=== PATIENT | female | born 1960 | race Caucasian/White ===

== ENCOUNTER 2024-01-04 07:32 | Outpatient (OUT) | payer OTHER, SELFPAY ==
--- NOTE | 2024-01-04 07:42 | CT_ITS ---
The [address] [address] Patient Name: REYNALDO MASON MRN: [id number] date: 1960 Sex: F Assigned Patient Location: CT Current Patient Location: CT Accession/Order Number: [id number] Exam Date: 01/04/2024 09:20 Report Date: 01/04/2024 10:15 At the request of: CHELY MAGUIRE Procedure: CT abdomen pelvis w con EXAMINATION: CT abdomen pelvis w con HISTORY: Incisional hernia without obstruction or gangrene K43.2 COMPARISON: No relevant comparison available. TECHNIQUE: CT images were created with IV contrast. Axial, Coronal, and Sagittal images. Dose reduction techniques were achieved by using automated exposure control and/or adjustment of mA and/or kV according to patient size and/or use of iterative reconstruction technique. FINDINGS: LUNG BASES: No visible pulmonary or pleural disease. LIVER: Diffuse hypoattenuation consistent with hepatic steatosis. No focal mass BILIARY: Surgical clips from cholecystectomy PANCREAS: No lesion, fluid collection, ductal dilatation, or atrophy. SPLEEN: No enlargement or focal lesion. ADRENALS: No mass or enlargement. KIDNEYS: Bilateral renal cortical cysts. No hydronephrosis or obstructing nephrolithiasis BOWEL/MESENTERY: Moderate stool in the cecum. Nonobstructive bowel gas pattern AORTA/VASCULAR: 3.5 cm fusiform aneurysm infrarenal abdominal aorta. Moderate diffuse atherosclerosis. No aortic dissection RETROPERITONEUM: No mass or adenopathy. LYMPH NODES: No adenopathy. URINARY BLADDER: No visible focal wall thickening, lesion, or calculus. PELVIC ORGANS: Hysterectomy ABDOMINAL WALL: 2.9 x 4.3 cm periumbilical hernia containing mesenteric fat without strangulation BONES: No bony lesion or fracture. OTHER: Negative. CT/CT abdomen pelvis w con IMPRESSION: 2.9 x 4.3 cm periumbilical hernia containing fat without strangulation 3.5 cm fusiform infrarenal abdominal aortic aneurysm Hepatic steatosis Electronically authenticated by: NISHA MONZON Date: 01/04/2024 10:15
[2024-01-04 09:23] LABS: Estimated GFR (African America >60 (>=60); Estimated GFR (Non-African Ame >60 (>=60)
== END 2024-01-04 07:33 | disposition home or self-care (01) ==
LOC: CT 07:36
PROVIDERS: PCP Family Medicine; Visit Provider Surgery
DX: Z01.812 Encounter for preprocedural laboratory examination (principal); K43.2 Incisional hernia without obstruction or gangrene; K42.9 Umbilical hernia without obstruction or gangrene; I71.43 Infrarenal abdominal aortic aneurysm, without rupture
CPT/HCPCS: 36415; 74177; 82565; Q9967